=== PATIENT | female | born 1930 | race Caucasian/White ===

== ENCOUNTER 2016-05-02 16:31 | Emergency (ER) | payer OTHER ==
[~2016-05-02] VITALS: Ht 167.6 cm; Wt 88.0 kg
[~2016-05-02 16:31] MED LIST: ASPEC81 PO; AVASTIN OPR; CLC100 PO; CYCL0.05 OPB; GLIM1TAB2 PO; LPT/40 PO; METO25TA3 PO; MRLP17 PO; MULT-190 PO; NTRGSL/4 UT; NXM/40 PO; VSC/10 PO
[2016-05-02 16:36] VITALS: TEMP 36.6; Ht 167.6 cm; Wt 88.0 kg
[2016-05-02] MEDS ORDERED: ATOR-24 PO (17:04)
[2016-05-02] MEDS ORDERED: SOLI10TA2 PO (17:04)
[2016-05-02] MEDS ORDERED: ESOM1CAP34 PO (17:04)
[2016-05-02] MEDS ORDERED: CYCL0.052 OP (17:04)
[2016-05-02] MEDS ORDERED: ASPI81TA21 PO (17:04)
[2016-05-02] MEDS ORDERED: CLC100X PO (17:04)
[2016-05-02] MEDS ORDERED: MRLP17X PO (17:04)
[2016-05-02] MEDS ORDERED: LSX20 PO (17:05)
[2016-05-02 17:41] LABS: BASO % 0.7 %; BASO ABS # 0.06 K/uL (0-0.2); COMPLETE YES; EOS % 1.5 %; HEMATOCRIT 41.3 % (37-47); IG% 0.2 %; LYMPH % 19.6 %; LYMPH ABS # 1.69 K/uL (1.2-3.4); MEAN CELL VOLUME 84.6 fL (80-100); MEAN CORPUSCULAR HEMOGLOBIN 29.5 pg (25-34); MEAN CORPUSCULAR HGB CONC 34.9 g/dl (32-36); MEAN PLATELET VOLUME 9.9 fL (7.4-10.4); MONO % 9.6 %; NEUT % 68.4 %; PLATELET COUNT 261 K/uL (130-400); RED BLOOD COUNT 4.88 M/uL (4.2-5.4); WHITE BLOOD COUNT 8.61 K/uL (4.8-10.8)
[2016-05-02 17:50] LABS: BLOOD UREA NITROGEN 12 mg/dl (7-18); CREATININE 0.81 mg/dl (0.60-1.20); GLUCOSE 117 mg/dl (70-99)
[2016-05-02 17:51] LABS: ALT/SGPT 14 U/L (12-78); BUN/CREATININE RATIO 15.2 (10-20); CALCIUM 8.7 mg/dl (8.5-10.1); CARBON DIOXIDE 22 mmol/L (21-32); CHLORIDE 103 mmol/L (98-107); POTASSIUM 3.7 mmol/L (3.5-5.1); SODIUM 137 mmol/L (136-145)
[2016-05-02 17:55] LABS: ALKALINE PHOSPHATASE 112 U/L (45-117); AST/SGOT 9 U/L (15-37)
--- NOTE | 2016-05-02 18:22 | DIAGNOSTIC IMAGING REPORT ---
CT HEAD WITHOUT CONTRAST (CT) CLINICAL HISTORY: Head pain status post trauma COMPARISON STUDY: 02/21/2011 TECHNIQUE: Axial CT of the brain is performed from the vertex to the skull base. IV contrast was not administered for this examination. CT DOSE: 1165.97 mGy.cm FINDINGS: No intra or extra-axial mass lesions are visualized. There is no CT evidence of acute cortical infarction. There is no evidence of midline shift. There is no acute hemorrhage. No calvarial fractures are visualized. There are patchy white matter hypodensities likely on a small vessel basis. There are moderate atrophic changes. There is no evidence of pathologic ventricular dilatation. There is no evidence of acute sinusitis. There is a left parietal scalp hematoma. IMPRESSION: Left parietal scalp hematoma. No acute intracranial findings. Electronically signed by: Jeovanny Quinn M.D. 05/02/2016 6:21 PM Dictated Date/Time: 05/02/2016 6:19 PM
--- NOTE | 2016-05-02 18:29 | DIAGNOSTIC IMAGING REPORT ---
CT OF THE CERVICAL SPINE CLINICAL HISTORY: Neck pain status post trauma COMPARISON STUDY: 02/21/2011 CT DOSE: TECHNIQUE: CT scan of the cervical spine was performed from the skull base to the thoracic inlet. Images are reviewed in the axial, sagittal, and coronal planes. IV contrast was not administered for this examination. FINDINGS: The visualized portions of the lung apices reveal no pneumothorax. There is a stable partially solid and groundglass 24 mm left apical nodule, suspicious for a low-grade neoplasm. This remains unchanged the prior January 2011 study. The prevertebral soft tissues are normal. No fractures or traumatic subluxations are visualized. There are multilevel degenerative changes present. There is a levoscoliosis. There is a stable 1 cm C3 lytic lesion. There is 2.8 mm of anterior subluxation of C4 on C5. This is felt to be arthritic. There is 1.8 mm of anterior subluxation of C7 on T1. This is felt to be arthritic. IMPRESSION: 1. No evidence of acute fracture or traumatic subluxation 2. Stable partially solid and groundglass 24 mm left apical pulmonary nodule, suspicious for a low-grade neoplasm. This remains unchanged from January 2011 Electronically signed by: Jeovanny Quinn M.D. 05/02/2016 6:27 PM Dictated Date/Time: 05/02/2016 6:21 PM
--- NOTE | 2016-05-02 19:30 | DIAGNOSTIC IMAGING REPORT ---
CHEST 1 VW FRONT-NOT PORTABLE CLINICAL HISTORY: FALL CHEST AND BACK PAIN COMPARISON STUDY: No previous studies for comparison. FINDINGS: The cardiac and mediastinal contours are normal. There is no evidence of focal pulmonary consolidation. There is no evidence of failure. No pleural effusions are visualized.[ There is minor left basilar atelectasis/scarring. There is a left subclavian dual-chamber central venous pacemaker present. No pneumothorax is visualized. IMPRESSION: No active disease in the chest. Electronically signed by: Jeovanny Quinn M.D. 05/02/2016 7:28 PM Dictated Date/Time: 05/02/2016 7:28 PM
--- NOTE | 2016-05-02 19:31 | DIAGNOSTIC IMAGING REPORT ---
LUMBAR SPINE 2 OR 3 VIEWS CLINICAL HISTORY: Back pain status post trauma COMPARISON STUDY: No previous studies for comparison. FINDINGS: There are postsurgical changes of L3-L5 laminectomies. There are postsurgical changes of discectomies and interbody fusions at the L3-4 L4-5 and L5-S1 levels. There are pedicle screws present at the L2, L3, and L4 levels. There is a posterior lateral fusion mass. Degenerative changes are present at the L2-3 level. There is minor retrolisthesis of L2 on L3. No acute fractures are visualized. IMPRESSION: Postsurgical change. No acute fractures identified. Electronically signed by: Jeovanny Quinn M.D. 05/02/2016 7:30 PM Dictated Date/Time: 05/02/2016 7:29 PM
--- NOTE | 2016-05-02 19:32 | DIAGNOSTIC IMAGING REPORT ---
THORACIC SPINE 2-VIEWS CLINICAL HISTORY: Thoracic spine pain status post trauma COMPARISON STUDY: No previous studies for comparison. FINDINGS: There is a left subclavian dual-chamber central venous pacemaker present. There are multilevel degenerative changes present within the thoracic spine. There are no acute fractures. No subluxations are visualized. IMPRESSION: Degenerative change. No acute fractures or subluxations are visualized on conventional radiographic imaging Electronically signed by: Jeovanny Quinn M.D. 05/02/2016 7:30 PM Dictated Date/Time: 05/02/2016 7:30 PM
--- NOTE | 2016-05-02 20:15 | DIAGNOSTIC IMAGING REPORT ---
CT PELVIS NO IV/ORAL CONT (CT) CT DOSE: 1270.45 mGy.cm CLINICAL HISTORY: Severe pelvic pain status post trauma TECHNIQUE: Helical images were acquired in the transverse plane. Coronal reformatted images were acquired COMPARISON STUDY: Conventional radiographic evaluation the lumbar spine dated April 2016 FINDINGS: There are postsurgical changes present within the lower lumbar spine. There is no evidence of SI joint diastases. There is no evidence of symphysis pubis diastases. The uterus appears surgically absent. There is no evidence of ascites. No retroperitoneal hemorrhage is visualized. 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 No fractures are visualized. There is slight posterior displacement of the coccyx. This is likely chronic. IMPRESSION: 1. Postsurgical changes within the lower lumbar spine 2. No acute fractures 3. Slight posterior displacement of the coccyx, likely chronic Electronically signed by: Jeovanny Quinn M.D. 05/02/2016 8:14 PM Dictated Date/Time: 05/02/2016 8:10 PM
--- NOTE | 2016-05-02 21:12 | EMERGENCY ROOM VISIT NOTE ---
History Report prepared by Татьянаibrogerio: Bel Adan Under the Supervision of: Dr. Mackenzie Warren M.D. First contact with patient: 16:38 Chief Complaint: FALL Stated Complaint: FALL, HEAD INJURY History of Present Illness The patient is a 85 year old female who presents to the Emergency Room with complaints of a head injury status post a fall this afternoon. The patient remembers making a salad and was putting stuff away in the refrigerator when she fell. Her life alert detected a fall and about 30 minutes later, her daughter found the patient sitting on the floor in her kitchen. The patient is unsure how exactly she fell and doesn't remember what happened after she fell either. She typically uses a cane or a walker. En route to the ED, the patient became nauseated and vomited. Currently, she has a headache and back pain. The patient has a history of chronic back pain. Per patient's daughter, the patient saw her PCP yesterday for a routine follow up appointment and had lab work which was normal. She was put on 20 mg Lasix for the first time due to increased lower extremity swelling. She did not have any other medication changes. Her first dose of Lasix was this morning. Source of History: patient, family Onset: today Position: head Timing: constant Associated Symptoms: + back pain, + nausea, + vomiting Review of Systems See HPI for pertinent positives & negatives. A total of 10 systems reviewed and were otherwise negative. Past Medical & Surgical Medical Problems: (1) Chronic back pain (2) Diabetes Family History Noncontributory secondary to age. Social History Smoking Status: Never Smoker Marital Status: Housing Status: lives alone Occupation Status: retired Current/Historical Medications Scheduled Aspirin Enteric Coated (Ecotrin Or Generic), 81 MG PO QPM Atorvastatin (Lipitor), 40 MG PO QPM Cyclosporine (Ophth) (Restasis), 1 DROP OP HS Esomeprazole Magnesium (Esomeprazole Magnesium), 40 MG PO QPM Furosemide (Furosemide), 20 MG PO Q2D Glimepiride (Glimepiride), 1 MG PO QAM Metoprolol Succinate (Toprol Xl), 12.5 MG PO QPM Ocuvite Preservision (Ocuvite Preservision), 2 TAB PO QPM Solifenacin (Vesicare), 10 MG PO QPM [Avastin], 1 DOSE OPR [id number] Scheduled PRN Docusate Sodium (Docusate Sodium), 200 MG PO DAILY PRN for Constipation Nitroglycerin (Nitrostat), 0.4 MG UT UD PRN for Chest Pain Polyethylene (Miralax), 17 GM PO DAILY PRN for Constipation Allergies Coded Allergies: Tobramycin (Verified Allergy, Intermediate, RASH W/OPTHAM, 05/02/16) Morphine (Verified Adverse Reaction, Intermediate, increase bp/increase heart rate, 05/02/16) Oxycodone (Verified Adverse Reaction, Intermediate, SEVERE NAUSEA AND VOMITING, 05/02/16) Physical Exam Vital Signs Date Time Temp Pulse Resp B/P Pulse Ox O2 Delivery O2 Flow Rate FiO2 05/02/16 21:13 66 18 159/67 94 Room Air 05/02/16 19:41 97 Room Air 05/02/16 19:32 61 16 166/82 94 Room Air 05/02/16 17:40 67 17 152/65 95 Room Air 05/02/16 16:40 64 05/02/16 16:36 36.6 67 20 165/109 93 Room Air Physical Exam CONSTITUTIONAL: Mild anxious distress. HEENT: No icterus, moist mucous membranes, eyes closed secondary to light sensitivity consistent with baseline NECK: No meningismus, trachea is midline. No midline c-spine tenderness CARDIOVASCULAR: Regular rate, normal perfusion RESPIRATORY: Unlabored breathing. Clear to auscultation. GASTROINTESTINAL: Non-tender GENITOURINARY: No flank tenderness MUSCULOSKELETAL: Full range of motion NEUROLOGIC: No acute gross focal deficits. PSYCHIATRIC: Normal affect SKIN: Normal for ethnicity. Medical Decision & Procedures ER Provider Diagnostic Interpretation: Radiology results as stated below per my review and radiologist interpretation. CT HEAD WITHOUT CONTRAST (CT) CLINICAL HISTORY: Head pain status post trauma COMPARISON STUDY: 02/21/2011 TECHNIQUE: Axial CT of the brain is performed from the vertex to the skull base. IV contrast was not administered for this examination. CT DOSE: 1165.97 mGy.cm FINDINGS: No intra or extra-axial mass lesions are visualized. There is no CT evidence of acute cortical infarction. There is no evidence of midline shift. There is no acute hemorrhage. No calvarial fractures are visualized. There are patchy white matter hypodensities likely on a small vessel basis. There are moderate atrophic changes. There is no evidence of pathologic ventricular dilatation. There is no evidence of acute sinusitis. There is a left parietal scalp hematoma. IMPRESSION: Left parietal scalp hematoma. No acute intracranial findings. Electronically signed by: Jeovanny Quinn M.D. 05/02/2016 6:21 PM Dictated Date/Time: 05/02/2016 6:[address] OF THE CERVICAL SPINE CLINICAL HISTORY: Neck pain status post trauma COMPARISON STUDY: 02/21/2011 CT DOSE: TECHNIQUE: CT scan of the cervical spine was performed from the skull base to the thoracic inlet. Images are reviewed in the axial, sagittal, and coronal planes. IV contrast was not administered for this examination. FINDINGS: The visualized portions of the lung apices reveal no pneumothorax. There is a stable partially solid and groundglass 24 mm left apical nodule, suspicious for a low-grade neoplasm. This remains unchanged the prior January 2011 study. The prevertebral soft tissues are normal. No fractures or traumatic subluxations are visualized. There are multilevel degenerative changes present. There is a levoscoliosis. There is a stable 1 cm C3 lytic lesion. There is 2.8 mm of anterior subluxation of C4 on C5. This is felt to be arthritic. There is 1.8 mm of anterior subluxation of C7 on T1. This is felt to be arthritic. IMPRESSION: 1. No evidence of acute fracture or traumatic subluxation 2. Stable partially solid and groundglass 24 mm left apical pulmonary nodule, suspicious for a low-grade neoplasm. This remains unchanged from January 2011 Electronically signed by: Jeovanny Quinn M.D. 05/02/2016 6:27 PM Dictated Date/Time: 05/02/2016 6:21 PM CHEST 1 VW FRONT-NOT PORTABLE CLINICAL HISTORY: FALL CHEST AND BACK PAIN COMPARISON STUDY: No previous studies for comparison. FINDINGS: The cardiac and mediastinal contours are normal. There is no evidence of focal pulmonary consolidation. There is no evidence of failure. No pleural effusions are visualized.[ There is minor left basilar atelectasis/scarring. There is a left subclavian dual-chamber central venous pacemaker present. No pneumothorax is visualized. IMPRESSION: No active disease in the chest. Electronically signed by: Jeovanny Quinn M.D. 05/02/2016 7:28 PM Dictated Date/Time: 05/02/2016 7:28 PM LUMBAR SPINE 2 OR 3 VIEWS CLINICAL HISTORY: Back pain status post trauma COMPARISON STUDY: No previous studies for comparison. FINDINGS: There are postsurgical changes of L3-L5 laminectomies. There are postsurgical changes of discectomies and interbody fusions at the L3-4 L4-5 and L5-S1 levels. There are pedicle screws present at the L2, L3, and L4 levels. There is a posterior lateral fusion mass. Degenerative changes are present at the L2-3 level. There is minor retrolisthesis of L2 on L3. No acute fractures are visualized. IMPRESSION: Postsurgical change. No acute fractures identified. Electronically signed by: Jeovanny Quinn M.D. 05/02/2016 7:30 PM Dictated Date/Time: 05/02/2016 7:29 PM THORACIC SPINE 2-VIEWS CLINICAL HISTORY: Thoracic spine pain status post trauma COMPARISON STUDY: No previous studies for comparison. FINDINGS: There is a left subclavian dual-chamber central venous pacemaker present. There are multilevel degenerative changes present within the thoracic spine. There are no acute fractures. No subluxations are visualized. IMPRESSION: Degenerative change. No acute fractures or subluxations are visualized on conventional radiographic imaging Electronically signed by: Jeovanny Quinn M.D. 05/02/2016 7:30 PM Dictated Date/Time: 05/02/2016 7:[address] PELVIS NO IV/ORAL CONT (CT) CT DOSE: 1270.45 mGy.cm CLINICAL HISTORY: Severe pelvic pain status post trauma TECHNIQUE: Helical images were acquired in the transverse plane. Coronal reformatted images were acquired COMPARISON STUDY: Conventional radiographic evaluation the lumbar spine dated April 2016 FINDINGS: There are postsurgical changes present within the lower lumbar spine. There is no evidence of SI joint diastases. There is no evidence of symphysis pubis diastases. The uterus appears surgically absent. There is no evidence of ascites. No retroperitoneal hemorrhage is visualized. 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 No fractures are visualized. There is slight posterior displacement of the coccyx. This is likely chronic. IMPRESSION: 1. Postsurgical changes within the lower lumbar spine 2. No acute fractures 3. Slight posterior displacement of the coccyx, likely chronic Electronically signed by: Jeovanny Quinn M.D. 05/02/2016 8:14 PM Dictated Date/Time: 05/02/2016 8:10 PM Laboratory Results 05/02/16 17:25 Red Blood Count 4.88, Mean Corpuscular Volume 84.6, Mean Corpuscular Hemoglobin 29.5, Mean Corpuscular Hemoglobin Concent 34.9, Mean Platelet Volume 9.9, Neutrophils (%) (Auto) 68.4, Lymphocytes (%) (Auto) 19.6, Monocytes (%) (Auto) 9.6, Eosinophils (%) (Auto) 1.5, Basophils (%) (Auto) 0.7, Neutrophils # (Auto) 5.88, Lymphocytes # (Auto) 1.69, Monocytes # (Auto) 0.83, Eosinophils # (Auto) 0.13, Basophils # (Auto) 0.06 05/02/16 17:25 Test 05/02/16 17:25 White Blood Count 8.61 K/uL (4.8-10.8) Red Blood Count 4.88 M/uL (4.2-5.4) Hemoglobin 14.4 g/dL (12.0-16.0) Hematocrit 41.3 % (37-47) Mean Corpuscular Volume 84.6 fL (80-100) Mean Corpuscular Hemoglobin 29.5 pg (25-34) Mean Corpuscular Hemoglobin Concent 34.9 g/dl (32-36) Platelet Count 261 K/uL (130-400) Mean Platelet Volume 9.9 fL (7.4-10.4) Neutrophils (%) (Auto) 68.4 % Lymphocytes (%) (Auto) 19.6 % Monocytes (%) (Auto) 9.6 % Eosinophils (%) (Auto) 1.5 % Basophils (%) (Auto) 0.7 % Neutrophils # (Auto) 5.88 K/uL (1.4-6.5) Lymphocytes # (Auto) 1.69 K/uL (1.2-3.4) Monocytes # (Auto) 0.83 K/uL (0.11-0.59) Eosinophils # (Auto) 0.13 K/uL (0-0.5) Basophils # (Auto) 0.06 K/uL (0-0.2) RDW Standard Deviation 41.3 fL (36.4-46.3) RDW Coefficient of Variation 13.4 % (11.5-14.5) Immature Granulocyte % (Auto) 0.2 % Immature Granulocyte # (Auto) 0.02 K/uL (0.00-0.02) Anion Gap 12.0 mmol/L (3-11) Est Creatinine Clear Calc Drug Dose 56.7 ml/min Estimated GFR () 76.8 Estimated GFR (Non- 66.2 BUN/Creatinine Ratio 15.2 (10-20) Calcium Level 8.7 mg/dl (8.5-10.1) Total Bilirubin 0.7 mg/dl (0.2-1) Direct Bilirubin 0.2 mg/dl (0-0.2) Aspartate Amino Transf (AST/SGOT) 9 U/L (15-37) Alanine Aminotransferase (ALT/SGPT) 14 U/L (12-78) Alkaline Phosphatase 112 U/L (45-117) Troponin I < 0.015 ng/ml (0-0.045) Total Protein 6.8 gm/dl (6.4-8.2) Albumin 3.7 gm/dl (3.4-5.0) Lipase 50 U/L (73-393) Ethyl Alcohol mg/dL < 3.0 mg/dl (0-3) Labs reviewed by ED physician. Medications Administered Medications (Trade) Dose Ordered Sig/Sarah Route Start Time Stop Time Status Last Admin Dose Admin Acetaminophen (Tylenol Tab) 1,000 mg NOW STAT PO 05/02/16 21:16 05/02/16 21:18 DC 05/02/16 21:23 1,000 MG Ketorolac Tromethamine (Toradol Inj) 15 mg NOW STAT IV 05/02/16 21:16 05/02/16 21:18 DC 05/02/16 21:24 15 MG Ondansetron HCl (Zofran Inj) 4 mg NOW STAT IV 05/02/16 21:16 05/02/16 21:18 DC 05/02/16 21:24 4 MG ECG Indication: other (fall) Rate (beats per minute): 60 Rhythm: other (atrial paced) Findings: nonspecific-ST abn, other (normal axis) ED Course 1640: Past medical records reviewed. The patient was evaluated in room C5. A complete history and physical examination was performed. 1944: The patient had an ambulation test with nursing staff. She could walk but was having pain. 2114: Upon reexamination the patient is resting comfortably. I discussed results and treatment plan with the patient and her family. They verbalized agreement and understanding. The patient is ready for discharge. Medical Decision Differential diagnosis includes traumatic injuries, UTI, heart disease. 85-year-old presents to the emergency room with family after accidental fall while making in her. Daughter subsequently called 911. Screening evaluations in the emergency room were normal. It is noted patient normally uses a walker and she was able to ambulate at baseline but noted some hip tenderness on the right. Therefore, CT the pelvis is obtained was subsequently negative for fracture. Patient and family in agreement with plan for discharge as she is essentially at baseline at this point. Impression Primary Impression: Fall Additional Impression: Contusion of multiple sites Scribe Attestation The scribe's documentation has been prepared under my direction and personally reviewed by me in its entirety. I confirm that the note above accurately reflects all work, treatment, procedures, and medical decision making performed by me. Departure Information Dispostion Home / Self-Care Referrals Esteban Deras D.O. (PCP) Patient Instructions My [facility] Problem Qualifiers
[2016-05-02 21:13] VITALS: BP 159/67; PULSE 66; O2SAT 94
[2016-05-02] MEDS ORDERED: KETOROLAC TROMETHAMINE 30 MG/ML VIAL IV STA (21:16)
[2016-05-02] MEDS ORDERED: ONDANSETRON INJ 2 MG/ML 2 ML VIAL IV STA (21:16)
[2016-05-02] MEDS ORDERED: ACETAMINOPHEN 500 MG TAB PO STA (21:16)
[2016-05-02] MEDS ORDERED: ACETAMINOPHEN 500 MG TAB PO ONE (21:17)
== END 2016-05-02 21:36 | disposition home or self-care (01) ==
LOC: EDBD 16:31 → C.EDC 16:32
DX: T14.8 Other injury of unspecified body region (principal); W19.XXXA Unspecified fall, initial encounter; Y92.010 Kitchen of single-family (private) house as the place of occurrence of the external cause; M54.9 Dorsalgia, unspecified; G89.29 Other chronic pain; E11.9 Type 2 diabetes mellitus without complications; Z79.82 Long term (current) use of aspirin; Z79.899 Other long term (current) drug therapy

== ENCOUNTER 2016-05-23 16:10 | Observation (INO) | payer OTHER ==
[~2016-05-23] VITALS: Ht 154.9 cm; Wt 88.5 kg
[~2016-05-23 16:10] MED LIST changes: -ASPEC81 PO; +ASPI81TA21 PO; +ATOR-24 PO; -CLC100 PO; +CLC100X PO; -CYCL0.05 OPB; +CYCL0.052 OP; +ESOM1CAP34 PO; -LPT/40 PO; +LSX20 PO; -MRLP17 PO; +MRLP17X PO; -NXM/40 PO; +SOLI10TA2 PO; -VSC/10 PO
[2016-05-23 16:26] VITALS: Ht 154.9 cm; Wt 88.5 kg
[2016-05-23 17:09] LABS: BASO % 0.3 %; BASO ABS # 0.03 K/uL (0-0.2); COMPLETE YES; EOS % 2.2 %; HEMATOCRIT 40.5 % (37-47); IG% 0.2 %; LYMPH % 34.9 %; LYMPH ABS # 3.33 K/uL (1.2-3.4); MEAN CELL VOLUME 84.9 fL (80-100); MEAN CORPUSCULAR HEMOGLOBIN 29.1 pg (25-34); MEAN CORPUSCULAR HGB CONC 34.3 g/dl (32-36); MONO % 8.7 %; NEUT % 53.7 %; PLATELET COUNT 283 K/uL (130-400); RED BLOOD COUNT 4.77 M/uL (4.2-5.4); WHITE BLOOD COUNT 9.54 K/uL (4.8-10.8)
[2016-05-23 17:28] LABS: ALT/SGPT 19 U/L (12-78); AST/SGOT 14 U/L (15-37); BLOOD UREA NITROGEN 10 mg/dl (7-18); CALCIUM 8.5 mg/dl (8.5-10.1); CARBON DIOXIDE 24 mmol/L (21-32); CHLORIDE 103 mmol/L (98-107); GLUCOSE 190 mg/dl (70-99); SODIUM 137 mmol/L (136-145)
[2016-05-23 17:34] LABS: ALB/GLOB RATIO 1.1 (0.9-2); ALKALINE PHOSPHATASE 113 U/L (45-117)
--- NOTE | 2016-05-23 18:20 | DIAGNOSTIC IMAGING REPORT ---
LEFT KNEE 1 OR 2 VIEWS ROUTINE CLINICAL HISTORY: Left knee pain following fall. COMPARISON: Left knee radiographs August 28, 2007. FINDINGS: Alignment of the total left knee arthroplasty is anatomic. There is no periprosthetic fracture or lucency. No definite joint effusion. Calcifications adjacent to the knee joint are chronic. IMPRESSION: Status post total left knee arthroplasty. Hardware intact with no periprosthetic fracture. Electronically signed by: German Tran M.D. 05/23/2016 6:19 PM Dictated Date/Time: 05/23/2016 6:18 PM
--- NOTE | 2016-05-23 18:21 | DIAGNOSTIC IMAGING REPORT ---
CHEST ONE VIEW PORTABLE CLINICAL HISTORY: Syncope. Fall. COMPARISON STUDY: Chest radiograph May 02, 2016. FINDINGS: A dual lead left subclavian pacemaker is unchanged in position. Moderate cardiomegaly is unchanged and there is no evidence of pulmonary edema. Mild left basilar opacity suggestive atelectasis. There are healed left rib fractures. There is no pneumothorax or pleural effusion. IMPRESSION: No acute cardiopulmonary findings. Electronically signed by: German Tran M.D. 05/23/2016 6:20 PM Dictated Date/Time: 05/23/2016 6:19 PM
--- NOTE | 2016-05-23 18:27 | DIAGNOSTIC IMAGING REPORT ---
CT OF THE HEAD WITHOUT CONTRAST CLINICAL HISTORY: Fall. Syncope. COMPARISON STUDY: Head CT May 02, 2016. TECHNIQUE: Helical axial images of the head were obtained without IV contrast. Automated exposure control was utilized for the study. FINDINGS: No acute intracranial hemorrhage, midline shift or mass effect is present. Ventricular system is normal. Basilar cisterns are patent. No extra axial collections are present. Prominence of the extra-axial spaces is due to atrophy. This is unchanged. Mild white matter hypodensity suggests small vessel disease. There are no findings to suggest acute dural sinus thrombosis or acute territorial infarct. There is no calvarial fracture. IMPRESSION: 1. No acute intracranial findings. 2. No calvarial fracture. Electronically signed by: German Tran M.D. 05/23/2016 6:25 PM Dictated Date/Time: 05/23/2016 6:22 PM
--- NOTE | 2016-05-23 18:30 | DIAGNOSTIC IMAGING REPORT ---
CT OF THE CERVICAL SPINE WITHOUT CONTRAST CLINICAL HISTORY: Fall. COMPARISON STUDY: Cervical spine CT May 12, 2016. TECHNIQUE: Helical axial images of the cervical spine were obtained without IV contrast. Sagittal and coronal reconstructions were viewed. FINDINGS: No acute fracture is identified. Craniocervical junction is intact. A lucent lesion within the left aspect of the C3 vertebral bodies unchanged since prior exams. This is benign. There is moderate multilevel degenerative disc disease and severe multilevel facet arthrosis. There is no prevertebral edema. No pneumothorax is shown within visualized portions of the lung apices. IMPRESSION: No acute cervical spine fracture or subluxation. Electronically signed by: German Tran M.D. 05/23/2016 6:28 PM Dictated Date/Time: 05/23/2016 6:26 PM
[2016-05-23 18:59] LABS: URINE APPEARANCE CLEAR (CLEAR); URINE BILIRUBIN NEG (NEG); URINE COLOR YELLOW; URINE NITRITE NEG (NEG); URINE PH 5.5 (4.5-7.5); URINE SPECIFIC GRAVITY 1.002 (1.000-1.030); UROBILINOGEN NEG (NEG); ZZUR CULT IF INDIC CLEAN CATCH NO
[2016-05-23 19:00] LABS: MANUAL MICROSCOPIC REQUIRED? NO; REVIEW REQ? NO
[2016-05-23] MEDS ORDERED: IV FLUIDS COMPLETED PRN (20:45)
[2016-05-23 21:15] VITALS: O2SAT 95
[2016-05-23] MEDS ORDERED: ONDANSETRON INJ 2 MG/ML 2 ML VIAL IV PRN (21:15)
[2016-05-23] MEDS ORDERED: HYDROCODONE/ACETAMOPHEN 5/325MG TAB PO PRN (21:15)
[2016-05-23] MEDS ORDERED: ACETAMINOPHEN 325 MG TAB PO PRN (21:15)
[2016-05-23] MEDS ORDERED: NITROGLYCERIN 0.4 MG SL PER TAB CHARGE SL PRN (21:15)
[2016-05-23] MEDS ORDERED: GLUCOSE 40% GEL 15 GM TUBE PO PRN (21:15)
[2016-05-23] MEDS ORDERED: DEXTROSE 50% 50 ML SYR IV PRN (21:15)
[2016-05-23] MEDS ORDERED: SODIUM CHLORIDE 0.9% 1000ML 1,000 ML IV ONE (21:15)
[2016-05-23] MEDS ORDERED: HYDROmorphone INJ 0.5 MG/0.5 ML SYR IV PRN (21:15)
[2016-05-23] MEDS ORDERED: DOCUSATE SODIUM 100 MG CAP PO PRN (21:15)
[2016-05-23] MEDS ORDERED: GLUCAGON FOR INJ 1 MG VIAL SQ PRN (21:15)
[2016-05-23] MEDS ORDERED: POLYETHYLENE (MIRALAX) 17 GM PACK PO PRN (21:15)
[2016-05-23] MEDS ORDERED: GLUCOSE 10 TABS/TUBE PO PRN (21:15)
--- NOTE | 2016-05-23 21:31 | EMERGENCY ROOM VISIT NOTE ---
History Report prepared by Lauren: Ale Ugalde Under the Supervision of: Dr. Raul Lee M.D. First contact with patient: 17:26 Chief Complaint: FALL Stated Complaint: SYNCOPE ON 05/21 History of Present Illness The patient is a 86 year old female who presents to the Emergency Room with complaints of a sudden fall that occurred 2 days ago. The patient states that she feels well. She does not experience any pain or lightheadedness prior to falling. The patient's daughter states that the patient was in the shower washing her hair when her legs got weak and she fell backward. The patient hit the back of her head on the tub. The patient states that it took her two hours to get out of the shower because she was so tired and weak. She is experiencing neck pain and left leg pain from falling. Pt denies LOC, headache, fevers, chills, diaphoresis, visual changes, chest pain, breathing difficulties, nausea , vomiting, abdominal pain, back pain, melena, hematochezia, urinary symptoms, numbness, lymphadenopathy, rash, or other complaints. Per the patient's daughter , the patient experienced a similar fall on May 01. A full work-up was done after that fall and it was unremarkable. The patient followed up with her PCP after that fall and they scheduled an echocardiogram. The patient had her echocardiogram done two days ago, but the patient's daughter has not heard anything about the results. The patient's daughter also states that the patient reported that she experienced similar symptoms in the past when she had a MN. The patient's daughter adds that the patient has a pacemaker in place and it was interrogated after the previous fall, but nothing was found. The patient's daughter called the patient's PCP office yesterday night and they called back today with a recommendation to come into the ED. The patient's daughter also reports that the patient's blood sugars have been good recently. Source of History: patient, family (daughter) Onset: 2 days ago Quality: other (fall) Timing: other (sudden) Associated Symptoms: + neck pain, + weakness (bilateral leg) Note: left leg pain Review of Systems See HPI for pertinent positives and negatives. A total of ten systems were reviewed and were otherwise negative. Past Medical & Surgical Medical Problems: (1) Chronic back pain (2) Diabetes (3) Syncope Family History No pertinent family history Social History Smoking Status: Former Smoker Marital Status: Housing Status: lives alone Occupation Status: retired Current/Historical Medications Scheduled Aspirin Enteric Coated (Ecotrin Or Generic), 81 MG PO QPM Atorvastatin (Lipitor), 40 MG PO QPM Cyclosporine (Ophth) (Restasis), 1 DROP OP HS Esomeprazole Magnesium (Esomeprazole Magnesium), 40 MG PO QPM Glimepiride (Glimepiride), 1 MG PO QPM Metoprolol Succinate (Toprol Xl), 12.5 MG PO QPM Ocuvite Preservision (Ocuvite Preservision), 2 TAB PO QPM Solifenacin (Vesicare), 10 MG PO QPM [Avastin], 1 DOSE OPR [id number] Scheduled PRN Docusate Sodium (Docusate Sodium), 200 MG PO DAILY PRN for Constipation Nitroglycerin (Nitrostat), 0.4 MG UT UD PRN for Chest Pain Polyethylene (Miralax), 17 GM PO DAILY PRN for Constipation Allergies Coded Allergies: Tobramycin (Verified Allergy, Intermediate, RASH W/OPTHAM, 05/23/16) Morphine (Verified Adverse Reaction, Intermediate, increase bp/increase heart rate, 05/23/16) Oxycodone (Verified Adverse Reaction, Intermediate, SEVERE NAUSEA AND VOMITING, 05/23/16) Physical Exam Vital Signs Date Time Temp Pulse Resp B/P Pulse Ox O2 Delivery O2 Flow Rate FiO2 05/23/16 20:46 61 18 157/73 96 Room Air 05/23/16 18:46 72 20 156/84 96 Room Air 05/23/16 16:55 76 20 128/73 93 Room Air 128/82 142/78 05/23/16 16:46 75 05/23/16 16:26 37.2 76 18 129/65 95 Room Air Physical Exam GENERAL: Awake, alert, tired-appearing, in no distress HENT: Normocephalic, atraumatic. Oropharynx unremarkable. EYES: Normal conjunctiva. Sclera non-icteric. NECK: Supple. Mild tenderness to palpation. No nuchal rigidity. FROM. No JVD. RESPIRATORY: Clear to auscultation. CARDIAC: Regular rate, normal rhythm. Extremities warm and well perfused. Pulses equal. ABDOMEN: Soft, non-distended. No tenderness to palpation. No rebound or guarding. No masses. RECTAL: Deferred. MUSCULOSKELETAL: Chest examination reveals no tenderness. The back is symmetrical on inspection without obvious abnormality. There is no CVA tenderness to palpation. No joint edema. LOWER EXTREMITIES: Calves are equal size bilaterally. Left knee tenderness with limited range of motion secondary to pain. No edema. No discoloration. NEURO: Normal sensorium. No sensory or motor deficits noted. SKIN: No rash or jaundice noted. Medical Decision & Procedures ER Provider Diagnostic Interpretation: X ray results as stated below per my interpretation and radiologist interpretation. Other radiology results as stated below per my review and radiologist interpretation CHEST ONE VIEW PORTABLE IMPRESSION: No acute cardiopulmonary findings. Electronically signed by: German Tran M.D. 05/23/2016 6:20 PM Dictated Date/Time: 05/23/2016 6:19 PM LEFT KNEE 1 OR 2 VIEWS ROUTINE IMPRESSION: Status post total left knee arthroplasty. Hardware intact with no periprosthetic fracture. Electronically signed by: German Tran M.D. 05/23/2016 6:19 PM Dictated Date/Time: 05/23/2016 6:[address] OF THE HEAD WITHOUT CONTRAST IMPRESSION: 1. No acute intracranial findings. 2. No calvarial fracture. Electronically signed by: German Tran M.D. 05/23/2016 6:25 PM Dictated Date/Time: 05/23/2016 6:[address] OF THE CERVICAL SPINE WITHOUT CONTRAST IMPRESSION: No acute cervical spine fracture or subluxation. Electronically signed by: German Tran M.D. 05/23/2016 6:28 PM Dictated Date/Time: 05/23/2016 6:26 PM Laboratory Results 05/23/16 16:50 Red Blood Count 4.77, Mean Corpuscular Volume 84.9, Mean Corpuscular Hemoglobin 29.1, Mean Corpuscular Hemoglobin Concent 34.3, Mean Platelet Volume 10.0, Neutrophils (%) (Auto) 53.7, Lymphocytes (%) (Auto) 34.9, Monocytes (%) (Auto) 8.7, Eosinophils (%) (Auto) 2.2, Basophils (%) (Auto) 0.3, Neutrophils # (Auto) 5.12, Lymphocytes # (Auto) 3.33, Monocytes # (Auto) 0.83, Eosinophils # (Auto) 0.21, Basophils # (Auto) 0.03 05/23/16 16:50 Test 05/23/16 13:35 05/23/16 16:00 05/23/16 16:50 Urine Color YELLOW Urine Appearance CLEAR (CLEAR) Urine pH 5.5 (4.5-7.5) Urine Specific [place] 1.002 (1.000-1.030) Urine Protein NEG (NEG) Urine Glucose (UA) NEG (NEG) Urine Ketones NEG (NEG) Urine Occult Blood NEG (NEG) Urine Nitrite NEG (NEG) Urine Bilirubin NEG (NEG) Urine Urobilinogen NEG (NEG) Urine Leukocyte Esterase SMALL (NEG) Urine WBC (Auto) 1-5 /hpf (0-5) Urine RBC (Auto) 0-4 /hpf (0-4) Urine Hyaline Casts (Auto) 0 /lpf (0-5) Urine Epithelial Cells (Auto) 5-10 /lpf (0-5) Urine Bacteria (Auto) NEG (NEG) Activated Partial Thromboplast Time 26.2 SECONDS (21.0-31.0) Partial Thromboplastin Ratio 1.0 White Blood Count 9.54 K/uL (4.8-10.8) Red Blood Count 4.77 M/uL (4.2-5.4) Hemoglobin 13.9 g/dL (12.0-16.0) Hematocrit 40.5 % (37-47) Mean Corpuscular Volume 84.9 fL (80-100) Mean Corpuscular Hemoglobin 29.1 pg (25-34) Mean Corpuscular Hemoglobin Concent 34.3 g/dl (32-36) Platelet Count 283 K/uL (130-400) Mean Platelet Volume 10.0 fL (7.4-10.4) Neutrophils (%) (Auto) 53.7 % Lymphocytes (%) (Auto) 34.9 % Monocytes (%) (Auto) 8.7 % Eosinophils (%) (Auto) 2.2 % Basophils (%) (Auto) 0.3 % Neutrophils # (Auto) 5.12 K/uL (1.4-6.5) Lymphocytes # (Auto) 3.33 K/uL (1.2-3.4) Monocytes # (Auto) 0.83 K/uL (0.11-0.59) Eosinophils # (Auto) 0.21 K/uL (0-0.5) Basophils # (Auto) 0.03 K/uL (0-0.2) RDW Standard Deviation 41.0 fL (36.4-46.3) RDW Coefficient of Variation 13.3 % (11.5-14.5) Immature Granulocyte % (Auto) 0.2 % Immature Granulocyte # (Auto) 0.02 K/uL (0.00-0.02) Anion Gap 10.0 mmol/L (3-11) Est Creatinine Clear Calc Drug Dose 41.2 ml/min Estimated GFR () 59.1 Estimated GFR (Non- 51.0 BUN/Creatinine Ratio 10.0 (10-20) Calcium Level 8.5 mg/dl (8.5-10.1) Magnesium Level 2.0 mg/dl (1.8-2.4) Total Bilirubin 0.3 mg/dl (0.2-1) Aspartate Amino Transf (AST/SGOT) 14 U/L (15-37) Alanine Aminotransferase (ALT/SGPT) 19 U/L (12-78) Alkaline Phosphatase 113 U/L (45-117) Troponin I < 0.015 ng/ml (0-0.045) Total Protein 6.8 gm/dl (6.4-8.2) Albumin 3.6 gm/dl (3.4-5.0) Globulin 3.2 gm/dl (2.5-4.0) Albumin/Globulin Ratio 1.1 (0.9-2) Thyroid Stimulating Hormone (TSH) 1.870 uIu/ml (0.300-4.500) Chemistry Specimen Hemolysis Laboratory results reviewed by me ECG Indication: weakness Rate (beats per minute): 71 Rhythm: normal sinus Findings: no acute ischemic change, no ectopy ED Course 1748: The patient was evaluated in room C8. A complete history and physical exam was performed. 1929: Upon reexamination, the patient was resting comfortably. I discussed the test results and treatment plan with the patient and her daughter. The patient will be evaluated for further management. 2009: Discussed the patient's case with Dr. Mimi Torres. The patient will be evaluated for further treatment and disposition. Medical Decision Triage Nursing notes reviewed. The patient's presentation and history were concerning for possible syncope. Etiologies such as cardiac sources, vasovagal event, infection, hypoglycemia, electrolyte abnormalities, intracerebral event, toxicologic, neurologic, as well as others were entertained. The patient was evaluated. Clinically she was doing well. She was sore. CT imaging of her neck and head were done and were negative. The patient has a bruise knee and x-ray imaging was performed. This was negative for fracture or dislocation. Her CBC, urinalysis, chemistry panel, cardiac markers were negative. The patient has had multiple episodes recently. Outpatient workup was unremarkable. The patient had similar issues when her pacemaker was first placed. Family was very concerned about her going home. Internal medicine was consulted for further management. The chart was completed utilizing [employer] Speech voice recognition software. Grammatical errors, random word insertions, pronoun errors, and incomplete sentences are an occasional consequence of this system due to software limitations, ambient noise, and hardware issues. Any formal questions or concerns about the content, text, or information contained within the body of this dictation should be directly addressed to the physician for clarification. Consults Time Called: 1942 Consulting Physician: Dr. Mimi Torres Returned Call: 2009 Discussed the patient's case with Dr. Mimi Torres. The patient will be evaluated for further treatment and disposition. Impression Primary Impression: Syncope Additional Impression: Closed head injury Scribe Attestation The scribe's documentation has been prepared under my direction and personally reviewed by me in its entirety. I confirm that the note above accurately reflects all work, treatment, procedures, and medical decision making performed by me. Departure Information Dispostion Being Evaluated By Hospitalist Referrals Esteban Deras D.OZhane (PCP) Patient Instructions My [facility] Problem Qualifiers Primary Impression: Syncope Syncope type: unspecified Qualified Codes: R55 - Syncope and collapse Additional Impression: Closed head injury Encounter type: initial encounter Qualified Codes: S09.90XA - Unspecified injury of head, initial encounter
[2016-05-23 21:54] VITALS: BP_SYST 149; BP_SYST 155; BP_SYST 163; BP_DIAS 77; BP_DIAS 78; BP_DIAS 83; PULSE 61; PULSE 63; PULSE 66; TEMP 36.2; O2SAT 94
[2016-05-23] MEDS: INSULIN ASPART 100 UNITS/ML 3 ML PEN SC SCH (21:55)
[2016-05-23] MEDS: ATORVASTATIN 40 MG TAB PO SCH (22:57)
[2016-05-23] MEDS: ASPIRIN 81 MG ECTAB PO SCH (22:57)
[2016-05-23] MEDS: PANTOprazole SOD 40 MG TAB PO SCH (22:58)
[2016-05-23] MEDS: METOPROLOL SUCC 25MG EXT REL TAB PO SCH (22:58)
[2016-05-23] MEDS: CEROVITE ADV FORMULA TAB PO SCH (22:58)
[2016-05-24] VITALS (10 sets, daily range): BP systolic 129–149; BP diastolic 68–81; PULSE 60–70; TEMP 36.3–36.7; O2SAT 93–98
--- NOTE | 2016-05-24 00:51 | HISTORY & PHYSICAL EXAMINATION ---
DATE OF ADMISSION: 05/23/2016 PRIMARY CARE DOCTOR: Dr. Deras Hx obtained from px and records. CHIEF COMPLAINT: Recurrent syncope. HISTORY OF PRESENT ILLNESS: Medical history is significant for hypertension, SA node dysfunction status post pacemaker placement. DM2 on oral meds, past tobacco abuse, arthritis, CHRIS on CPAP. Three weeks ago, the patient had an unwitnessed syncopal event while in her kitchen, Patient was found sitting on the floor at home after her personal Med Alert went off. No chest pain. Usual shortness of breath. Seen at the ER. CAT scan of the head showed left parietal scalp hematoma. Patient was subsequently sent home. Patient had a followup with PCP. Furosemide was stopped. Outpx 2D echo last month showed increased concentric LVH, EF of 55-59%, abnormal LV diastolic dysfunction, mild calcific aortic valve stenosis and mild aortic root enlargement. Home pacer checks from a few weeks back were OK as per daughter's communication w/ access services librarian's office. Patient also admits to episodic headaches from the vertex going down to the left side of the head, intermittent symptoms. No nausea, no vomiting for months now. some forgetfulness attributed to multiple concussions in the past as per px/ family Two days ago, px had recurrent syncopal event in the shower. No incontinence, no tongue biting. She may have been out for two hours. MEDICAL HISTORY: As above. SURGERIES: Hysterectomy, cataract surgery, anal lesion removals, back surgery, knee surgery and pacemaker placement (2009) HOME MEDICATIONS: Include; glimepiride, Toprol, Nitrostat, Ocuvite, MiraLax, VESIcare, aspirin, Lipitor, Restasis, docusate sodium and esomeprazole. ALLERGIES: TO MORPHINE, OXYCODONE AND TOBRAMYCIN. FAMILY HISTORY: Heart disease. PERSONAL AND SOCIAL HISTORY: Past tobacco use. No chronic intake of alcoholic beverages. A homemaker in her younger years. Lives alone. A . REVIEW OF SYSTEMS: As per HPI, all other ROS negative. PHYSICAL EXAMINATION: VITAL SIGNS: Blood pressure is 129/65, pulse rate 66, RR 18, temp 37.2, sats 98 on room air. GENERAL: Noted to be obese, slightly anxious, in no respiratory distress, looks younger for her stated age. HEENT: [place] palpebral conjunctivae. Dry mucosa. NECK: Short neck. LUNGS: Decreased breath sounds. HEART: Regular rate and rhythm. ABDOMEN: Soft. EXTREMITIES: No edema. no tenderness NEUROLOGIC: No gross focality. LABORATORIES: Hemoglobin was noted to be 12.9, hematocrit 40, white cells 9.5 and platelets 285. Sodium 137, potassium 4, chloride 103, CO2 24, BUN 10, creatinine 1.2, glucose 199, troponin was normal. Hemoglobin A1c in April [address] of the head; no acute pathology. EKG; rate of 70., NSR, no ischemia ASSESSMENT: 1. Recurrent syncope. 2 unwitnessed syncopal events in the last month. differentials include : orthostasis pacemaker dysfunction, hx SA node dysfunction sp PPM seizures 2. Hypertension, stable 3. DMi2 on oral meds, well-controlled as of recent outpx A1c 4. recurrent headaches rule out brain tumor PLAN: Observation PCU. Check orthostatic vitals. Pacemaker interrogation. EEG. CT of the head with contrast for recurrent headaches, syncope. (MRI precluded by pacemaker) Further mx pending mayorga results ISS BG goal 140-180. DVT prophylaxis, Lovenox subQ. DNR. Patient's daughter requesting for updates from providers. Miss Daisy Berman at [phone]. MTDD
[2016-05-24 06:22] LABS: PROTHROMBIN TIME (PATIENT) 11.1 SECONDS (9.0-12.0)
[2016-05-24 06:54] LABS: BASO % 0.5 %; BASO ABS # 0.04 K/uL (0-0.2); COMPLETE YES; EOS % 3.4 %; HEMATOCRIT 40.5 % (37-47); IG% 0.3 %; LYMPH % 34.7 %; LYMPH ABS # 2.58 K/uL (1.2-3.4); MEAN CELL VOLUME 85.3 fL (80-100); MEAN CORPUSCULAR HEMOGLOBIN 29.5 pg (25-34); MEAN CORPUSCULAR HGB CONC 34.6 g/dl (32-36); MONO % 11.3 %; NEUT % 49.8 %; PLATELET COUNT 258 K/uL (130-400); RED BLOOD COUNT 4.75 M/uL (4.2-5.4); WHITE BLOOD COUNT 7.44 K/uL (4.8-10.8)
[2016-05-24] MEDS: INSULIN ASPART 100 UNITS/ML 3 ML PEN SC SCH ×4 (08:33→21:00)
[2016-05-24] MEDS ORDERED: OPTIRAY 320 IV PRN (09:15)
--- NOTE | 2016-05-24 09:23 | DIAGNOSTIC IMAGING REPORT ---
CT brain combination HEAD COMBO CLINICAL HISTORY: Mental status change TECHNIQUE: Pre and post contrast transaxial acquisition COMPARISON STUDY: 05/23/2016 FINDINGS: Mild age-related atrophy. Ventricular system is midline. No evidence for acute intracranial hemorrhage. Postcontrast images are negative for an enhancing lesion. IMPRESSION: Age-related atrophy. No acute process. No change from the prior study. Electronically signed by: Jose George M.D. 05/24/2016 9:22 AM Dictated Date/Time: 05/24/2016 9:19 AM
[2016-05-24] MEDS: ENOXAPARIN 40 MG/0.4 ML SYR SC SCH (10:03)
--- NOTE | 2016-05-24 13:52 | ELECTROENCEPHALOGRAPH REPORT ---
CLINICAL DIAGNOSIS: Syncopal events, question seizures. EEG DIAGNOSIS: Essentially normal during wakefulness. DESCRIPTION OF TRACING: This EEG was done as an inpatient study as a bedside recording and is of excellent technical quality with the exception of some early muscle and movement artifacts. Photic stimulation was performed. A simultaneous video analysis of patient movement and behavior was obtained. Drowsiness and light sleep were not seen. During wakefulness, there is evidence for normal appearing background rhythm in the alpha range of up to 9-10 Hz of maximum frequency and 30 microvolts of maximum amplitude. This is maximum posterior head regions bilaterally symmetrical. Polymorphic mid frequency theta activity is seen over all head regions without clear focal or regional predominance. Anterior head region maximum bilaterally symmetrical low voltage fast activity in the beta range is present. Photic stimulation provoked some minimal driving response without a photomyogenic or photoparoxysmal component. At no time during the waking tracing is there evidence for potentially epileptogenic activity in the form of polyspike or spike wave bursts, focal sharp waves or focal spikes. INTERPRETATION: This EEG is essentially normal during wakefulness without evidence for focal or generalized encephalopathy and without evidence for potentially epileptogenic activity.
--- NOTE | 2016-05-24 16:18 | Progress Note ---
Medicine Progress Note Date & Time of Visit: May 24, 2016 at 15:46. Subjective Pt was seen and examined Sitting in chair very comfortable with no distress with family by her side Pt said that she feels good she just walked with PT with no problems she said that her breathing is stable Pt denies any chest pain, palpitation, dizziness Objective Last 8 Hrs Date Time Temp Pulse Resp B/P Pulse Ox O2 Delivery O2 Flow Rate FiO2 05/24/16 14:43 36.6 65 18 149/79 93 05/24/16 12:17 Room Air 05/24/16 11:42 36.7 70 20 143/81 95 05/24/16 08:30 Room Air Physical Exam: General- No acute distress, very pleasant Head- atraumatic Eyes- PERRL, EOMI ENT- oropharynx clear Neck- supple, no JVD Lungs- No wheezing, no crackles Heart- regular rhythm; no murmur Abdomen- normal bowel sounds, soft Extremities-no calf tenderness Neuro- alert, oriented x 3; PERRL, EOMI; no facial palsy; no dysarthria, no neuro focal deficits Skin- warm & dry Laboratory Results: Last 24 Hours Test 05/23/16 16:00 05/23/16 16:50 05/23/16 21:54 05/24/16 05:55 Activated Partial Thromboplast Time 26.2 SECONDS Partial Thromboplastin Ratio 1.0 White Blood Count 9.54 K/uL 7.44 K/uL Red Blood Count 4.77 M/uL 4.75 M/uL Hemoglobin 13.9 g/dL 14.0 g/dL Hematocrit 40.5 % 40.5 % Mean Corpuscular Volume 84.9 fL 85.3 fL Mean Corpuscular Hemoglobin 29.1 pg 29.5 pg Mean Corpuscular Hemoglobin Concent 34.3 g/dl 34.6 g/dl Platelet Count 283 K/uL 258 K/uL Mean Platelet Volume 10.0 fL 10.0 fL Neutrophils (%) (Auto) 53.7 % 49.8 % Lymphocytes (%) (Auto) 34.9 % 34.7 % Monocytes (%) (Auto) 8.7 % 11.3 % Eosinophils (%) (Auto) 2.2 % 3.4 % Basophils (%) (Auto) 0.3 % 0.5 % Neutrophils # (Auto) 5.12 K/uL 3.71 K/uL Lymphocytes # (Auto) 3.33 K/uL 2.58 K/uL Monocytes # (Auto) 0.83 K/uL 0.84 K/uL Eosinophils # (Auto) 0.21 K/uL 0.25 K/uL Basophils # (Auto) 0.03 K/uL 0.04 K/uL RDW Standard Deviation 41.0 fL 41.1 fL RDW Coefficient of Variation 13.3 % 13.2 % Immature Granulocyte % (Auto) 0.2 % 0.3 % Immature Granulocyte # (Auto) 0.02 K/uL 0.02 K/uL Sodium Level 137 mmol/L Potassium Level 4.0 mmol/L Chloride Level 103 mmol/L Carbon Dioxide Level 24 mmol/L Anion Gap 10.0 mmol/L Blood Urea Nitrogen 10 mg/dl Creatinine 1.00 mg/dl Est Creatinine Clear Calc Drug Dose 41.2 ml/min Estimated GFR () 59.1 Estimated GFR (Non- 51.0 BUN/Creatinine Ratio 10.0 Random Glucose 190 mg/dl Calcium Level 8.5 mg/dl Magnesium Level 2.0 mg/dl Total Bilirubin 0.3 mg/dl Aspartate Amino Transf (AST/SGOT) 14 U/L Alanine Aminotransferase (ALT/SGPT) 19 U/L Alkaline Phosphatase 113 U/L Troponin I < 0.015 ng/ml Total Protein 6.8 gm/dl Albumin 3.6 gm/dl Globulin 3.2 gm/dl Albumin/Globulin Ratio 1.1 Thyroid Stimulating Hormone (TSH) 1.870 uIu/ml Chemistry Specimen Hemolysis Bedside Glucose 102 mg/dl Prothrombin Time 11.1 SECONDS Prothromb Time International Ratio 1.0 Test 05/24/16 07:20 05/24/16 11:29 Bedside Glucose 119 mg/dl 143 mg/dl Assessment & Plan Recurrent syncope episodes Unknown etiology Possible related to vasovagal vs orthostatic vs pacemaker malfunction CT head on admission was negative Repeat CT head today was negative EEG showed no evidence of seizure activity Neuro exam was negative for focal neuro deficits Pacemaker interrogation done Tele monitor reviewed Asymptomatic Family request cardiology consult If symptoms continue, consider Holter monitor, not sure if that will help since pt also already had a pacemaker Recent Echo on 05/21 Showed: Interpretation Summary The examination is adequate to evaluate the referral indication. The left ventricular cavity size is normal. The LV wall thickness is moderately increased (concentric). The left ventricular wall motion is normal. The qualitative LV ejection fraction is 5559%(normal). The left ventricular diastolic function is mildly abnormal (grade I). The aortic valve has three leaflets. The aortic valve is mildly calcified. Very mild aortic valve stenosis is present. The aortic root is mildly enlarged. Hx Pacemaker Pacemaker interrogation done Stable Hypertension Continue current med stable DMII Hba1c 6.2 on 05/11 well controlled continue current management Headache CT head negative stable DVT px on lovenox subq Code Status DNR Consultants: Cardio Current Inpatient Medications: Current Inpatient Medications Medications (Trade) Dose Ordered Sig/Sarah Route Start Time Stop Time Status Last Admin Dose Admin Miscellaneous (Iv Fluids Completed) 1 ea PRN PRN N/A 05/23/16 20:45 05/23/17 20:44 Enoxaparin Sodium (Lovenox Inj) 40 mg Q24H SC 05/24/16 09:00 06/23/16 08:59 05/24/16 10:03 40 MG Acetaminophen (Tylenol Tab) 650 mg Q4H PRN PO 05/23/16 21:15 06/22/16 21:14 Nitroglycerin (Nitrostat Tab) 0.4 mg UD PRN SL 05/23/16 21:15 06/22/16 21:14 Insulin Aspart (novoLOG ASPART) SLIDING SCALE If C... ACHS SC 05/23/16 22:00 06/22/16 21:59 Glucose (Glucose 40% Gel) 15-30 GRAMS 15 GRAMS... UD PRN PO 05/23/16 21:15 06/22/16 21:14 Glucose (Glucose Chew Tab) 4-8 Tablets 4 Tabl... UD PRN PO 05/23/16 21:15 06/22/16 21:14 Dextrose (Dextrose 50% 50ML Syringe) 25-50ML OF 50% DW IV FOR... UD PRN IV 05/23/16 21:15 06/22/16 21:14 Glucagon (Glucagon Inj) 1 mg UD PRN SQ 05/23/16 21:15 06/22/16 21:14 Ondansetron HCl (Zofran Inj) 4 mg Q6H PRN IV 05/23/16 21:15 06/22/16 21:14 Hydromorphone HCl (Dilaudid Inj) 0.5 mg Q3H PRN IV 05/23/16 21:15 06/06/16 21:14 Acetaminophen/ Hydrocodone Bitart ([place] 5/325 Tab) 1 tab Q6H PRN PO 05/23/16 21:15 06/06/16 21:14 Aspirin (Ecotrin Tab) 81 mg QPM PO 05/24/16 21:00 06/23/16 20:59 05/23/16 22:57 81 MG Atorvastatin Calcium (Lipitor Tab) 40 mg QPM PO 05/24/16 21:00 06/23/16 20:59 05/23/16 22:57 40 MG Docusate Sodium (coLACE CAP) 200 mg DAILY PRN PO 05/23/16 21:15 06/22/16 21:14 Metoprolol Succinate (Toprol Xl Tab) 12.5 mg QPM PO 05/24/16 21:00 06/23/16 20:59 05/23/16 22:58 12.5 MG Multivitamins/ Minerals (Multivitamin W/ Minerals Tab) 2 tab QPM PO 05/24/16 21:00 06/23/16 20:59 05/23/16 22:58 2 TAB Polyethylene (Miralax Powder Packet) 17 gm DAILY PRN PO 05/23/16 21:15 06/22/16 21:14 Miscellaneous Information (Order Awaiting Action) 1 ea QS N/A 05/24/16 08:00 06/23/16 07:59 Pantoprazole Sodium (Protonix Tab) 40 mg QPM PO 05/24/16 21:00 06/23/16 20:59 05/23/16 22:58 40 MG Ioversol (Optiray 320) 100 ml UD PRN IV 05/24/16 09:15 05/28/16 09:14
[2016-05-24] MEDS: ASPIRIN 81 MG ECTAB PO SCH (21:01)
[2016-05-24] MEDS: PANTOprazole SOD 40 MG TAB PO SCH (21:01)
[2016-05-24] MEDS: ATORVASTATIN 40 MG TAB PO SCH (21:01)
[2016-05-24] MEDS: CEROVITE ADV FORMULA TAB PO SCH (21:01)
[2016-05-24] MEDS: METOPROLOL SUCC 25MG EXT REL TAB PO SCH (21:02)
[2016-05-25 04:00] VITALS: BP 145/67; PULSE 63; TEMP 36.3; O2SAT 95
[2016-05-25 07:32] VITALS: BP 141/66; PULSE 64; TEMP 36.6; O2SAT 96
[2016-05-25] MEDS: ENOXAPARIN 40 MG/0.4 ML SYR SC SCH (09:07)
[2016-05-25] MEDS: INSULIN ASPART 100 UNITS/ML 3 ML PEN SC SCH ×2 (09:08→12:07)
--- NOTE | 2016-05-25 11:44 | CARDIOLOGY CONSULTATION ---
DATE OF CONSULTATION: 05/25/2016 REFERRING PHYSICIAN: Heather Boss MD PRIMARY CARE PHYSICIAN: Dr. Esteban Deras. REASON FOR CONSULTATION: Possible syncope. HISTORY OF PRESENT ILLNESS: Ms. Daley is an 86-year-old female who presented to the Emergency Department with 2 falls over the past 2 weeks. The initial fall occurred while standing on a step stool in front of her refrigerator. She had been attempting to grass something from an upper shelf when she fell forward. She struck her head and remembers the impact. She was then on the floor and unable to get up. She is unsure whether she lost consciousness completely. She states she was overcome by a feeling of weakness and her legs gave out at that time. She was seen by her primary care physician, who ordered 2D echo, which demonstrated borderline mild aortic stenosis, otherwise preserved LV systolic function. She suffered a second episode on 05/21/2016. At that time, she was in the shower. She was rinsing her hair and then fell backwards, striking her head. She used her alert bracelet to summon EMS. She was brought to the Emergency Department. Initially, her telemetry is unremarkable. She is AV sequential paced during this hospitalization. There are no dysrhythmias. Cardiac enzymes are undetectable. Notes one episode of mild lightheadedness yesterday without associated dysrhythmia or change in blood pressure. Orthostatic blood pressures have been assessed and within normal limits as well. Lasix recently discontinued after 1 dose. No other recent medication changes. Denies fever, chills, dysuria, or sick contacts. Currently, resting comfortably, sitting in chair at bedside. Denies any recent change in functional capacity. She can reproduce symptoms with bending forward. The patient admits to inconsistent diet. She is a diabetic with antihyperglycemic medications as noted below. Frequent falls prior to her pacemaker implantation with head trauma on multiple occasions. She offers no other complaints at this time. REVIEW OF SYSTEMS: The pertinent positive noted above, a comprehensive 10-system review is otherwise negative. PAST MEDICAL HISTORY: 1. Sinus node dysfunction, status post pacemaker implantation. 2. Type 2 diabetes. 3. GERD. 4. Irritable bowel syndrome. 5. Postconcussion syndrome. 6. Colon polyp. 7. Hypertension. PAST SURGICAL HISTORY: 1. Pacemaker implantation. 2. Bilateral knee replacement. 3. Bronchoscopy. 4. Colonoscopy. 5. Cystoscopy. 6. Partial hysterectomy. 7. Spinal surgery with lumbar fusion. SOCIAL HISTORY: Former tobacco use, quitting in 1959. She is and lives alone. FAMILY HISTORY: Negative for premature CAD or sudden cardiac ; however, noncontributory given the patient's advanced age. ALLERGIES: PERCOCET, AUGMENTIN, MORPHINE, AND TOBRAMYCIN. CURRENT OUTPATIENT MEDICATIONS: 1. Sublingual nitroglycerin as needed. 2. Toprol-XL 12.5 mg daily. 3. VESIcare 10 mg daily. 4. Atorvastatin 40 mg daily. 5. Glimepiride 1 mg daily. 6. Esomeprazole 40 mg daily. 7. Zantac 150 mg 2 times daily. 8. Zyrtec daily. 9. Aspirin [address] of the head demonstrates age-related atrophy with no acute process. Cervical spine CT: No fracture or subluxation. Chest x-ray on admission: No acute cardiopulmonary findings. LABORATORY DATA: Cardiac enzymes negative x1 set. White blood cell count 7.44, hemoglobin is 14, and platelet count is 258. INR is 1.0. EKG on admission is sinus rhythm with intermittent demand atrial pacing. Telemetry demonstrates atrial pacing, no dysrhythmias. PHYSICAL EXAMINATION: VITAL SIGNS: Temperature is 36.6 degrees centigrade, pulse 64 beats per minute and regular, respiratory rate 20 breaths per minute, blood pressure 141/66 and SaO2 is 96% on room air. GENERAL: NAD, hard of hearing, awake and alert. HEENT: Her mucous membranes are moist. No scleral icterus. Conjunctivae pink. NECK: Supple. There is no JVD, no HJR, and no carotid bruit. HEART: Regular with a normal S1 and S2. There is a 1/6 systolic ejection murmur heard best at the right second intercostal space without radiation. ABDOMEN: Soft and nontender. There is no rebound or guarding. Normal bowel sounds. EXTREMITIES: Warm and dry with trace pedal edema. NEUROLOGIC: Demonstrates no focal motor deficit. Cranial nerves grossly intact. FINAL IMPRESSION: 1. An 86-year-old female admission with falls and possible recurrent syncopal episode. It appears that the component of the patient falls related to positional dizziness and possible vertigo. Cannot exclude vasovagal syncope, although there are no orthostatic blood pressure changes on examination during hospitalization. She is currently asymptomatic. Her pacemaker interrogation is within normal limits without evidence of dysrhythmia on telemetry. Recent resting 2D transthoracic echo demonstrates normal LV systolic function with mild aortic stenosis. 2. History of multiple falls with head trauma, concussion, and possible post-concussion syndrome. 3. Sick sinus syndrome, status post pacemaker implantation. 4. Hypertension -- controlled. 5. Diabetes type 2, which is well controlled on sulfonylurea. The patient's daughter reports inconsistent diet and possible poor p.o. intake despite taking her medications. PLAN AND RECOMMENDATIONS: I had a long discussion with the patient as well as her daughter via phone. I spoke to her daughter for more than 20 minutes today. Initial cardiac evaluation demonstrates no evidence of dysrhythmia or structural heart disease that would place her at high risk for dysrhythmia. Her pacemaker interrogation also reveals normal function without evidence of sustained dysrhythmias. Consider neurology consultation and/or referral to [facility] in the future. I will discontinue her low dose beta-galo at this time. We will continue to follow and monitor blood pressure as an outpatient. Consider discontinuation of sulfonylurea as intermittent hypoglycemia is surely in the differential diagnosis of the patient recurrent symptoms. Consider alternative antihyperglycemic medications per internal medicine or primary care physician as an outpatient. The patient will return to my office for routine pacemaker check in approximately 2 months. I will see her back for routine followup in 2-4 weeks as an outpatient. Conservative measures discussed with the patient and her daughter including gradual position change and avoiding injury with prodromal symptoms including sitting or lying supine as needed. The patient and daughter voiced understanding. Thank you for allowing me to take part in the care of your patient.
[2016-05-25 12:32] VITALS: BP 119/74; PULSE 69; TEMP 36.3; O2SAT 97
--- NOTE | 2016-05-25 13:39 | Progress Note ---
Medicine Progress Note Date & Time of Visit: May 25, 2016 at 13:21. Subjective Pt was seen and examined Sitting in chair comfortable with no distress Discussed case with daughter that was in the room pt said that she feels fine she denies any chest pain, palpitation, dizziness Objective Last 8 Hrs Date Time Temp Pulse Resp B/P Pulse Ox O2 Delivery O2 Flow Rate FiO2 05/25/16 12:32 36.3 69 24 119/74 97 2.0 05/25/16 12:00 Room Air 05/25/16 08:00 Room Air 05/25/16 07:32 36.6 64 24 141/66 96 Physical Exam: General- No acute distress, very pleasant Head- atraumatic Eyes- PERRL, EOMI ENT- oropharynx clear Neck- supple, no JVD Lungs- No wheezing, no crackles Heart- regular rhythm; no murmur Abdomen- normal bowel sounds, soft Extremities-no calf tenderness Neuro- alert, oriented x 3; PERRL, EOMI; no facial palsy; no dysarthria, no neuro focal deficits Skin- warm & dry Laboratory Results: Last 24 Hours Test 05/24/16 16:33 05/24/16 20:31 05/25/16 08:04 05/25/16 11:49 Bedside Glucose 140 mg/dl 139 mg/dl 146 mg/dl 153 mg/dl Assessment & Plan Recurrent syncope episodes Unknown etiology Possible related to vasovagal vs orthostatic vs pacemaker malfunction vs medication CT head on admission was negative Repeat CT head today was negative EEG showed no evidence of seizure activity Neuro exam was negative for focal neuro deficits Pacemaker interrogation done that showed pacemaker is working fine Tele monitor reviewed no arrhythmia episode Asymptomatic Family request cardiology consult 05/25 No arrhythmia on tele monitor asymptomatic Orthostatic BP Pacemaker is working fine Cardiology spoke to daughter Case discussed with ángela Chaudhry from cardiac standpoint to discharge Metoprolol d/c follow up with cardiology as an outpatient in 2 to 4 weeks Pacemaker checks in 2 months. Continue PT/OT Recent Echo on 05/21 Showed: Interpretation Summary The examination is adequate to evaluate the referral indication. The left ventricular cavity size is normal. The LV wall thickness is moderately increased (concentric). The left ventricular wall motion is normal. The qualitative LV ejection fraction is 5559%(normal). The left ventricular diastolic function is mildly abnormal (grade I). The aortic valve has three leaflets. The aortic valve is mildly calcified. Very mild aortic valve stenosis is present. The aortic root is mildly enlarged. Hx Pacemaker Pacemaker interrogation done function normally Stable Hypertension metoprolol discontinue by Cardiology Continue monitor BP stable DMII Hba1c 6.2 on 05/11 well controlled Will d/c glimepiride for now due to the risk of hypoglycemia If BS starts to elevate, we can resume it continue monitor BS Headache CT head negative stable DVT px on lovenox subq during the hospital course Code Status DNR Disposition Follow up appt with Dr. Deras on 06/01 @ 10:30 am Follow up with Cardiology dr. Rangel in 2 to 4 weeks Consultants: Cardio PT/OT Current Inpatient Medications: Current Inpatient Medications Medications (Trade) Dose Ordered Sig/Sarah Route Start Time Stop Time Status Last Admin Dose Admin Miscellaneous (Iv Fluids Completed) 1 ea PRN PRN N/A 05/23/16 20:45 05/23/17 20:44 Enoxaparin Sodium (Lovenox Inj) 40 mg Q24H SC 05/24/16 09:00 06/23/16 08:59 05/25/16 09:07 40 MG Acetaminophen (Tylenol Tab) 650 mg Q4H PRN PO 05/23/16 21:15 06/22/16 21:14 Nitroglycerin (Nitrostat Tab) 0.4 mg UD PRN SL 05/23/16 21:15 06/22/16 21:14 Insulin Aspart (novoLOG ASPART) SLIDING SCALE If C... ACHS SC 05/23/16 22:00 06/22/16 21:59 Glucose (Glucose 40% Gel) 15-30 GRAMS 15 GRAMS... UD PRN PO 05/23/16 21:15 06/22/16 21:14 Glucose (Glucose Chew Tab) 4-8 Tablets 4 Tabl... UD PRN PO 05/23/16 21:15 06/22/16 21:14 Dextrose (Dextrose 50% 50ML Syringe) 25-50ML OF 50% DW IV FOR... UD PRN IV 05/23/16 21:15 06/22/16 21:14 Glucagon (Glucagon Inj) 1 mg UD PRN SQ 05/23/16 21:15 06/22/16 21:14 Ondansetron HCl (Zofran Inj) 4 mg Q6H PRN IV 05/23/16 21:15 06/22/16 21:14 Hydromorphone HCl (Dilaudid Inj) 0.5 mg Q3H PRN IV 05/23/16 21:15 06/06/16 21:14 Acetaminophen/ Hydrocodone Bitart ([place] 5/325 Tab) 1 tab Q6H PRN PO 05/23/16 21:15 06/06/16 21:14 Aspirin (Ecotrin Tab) 81 mg QPM PO 05/24/16 21:00 06/23/16 20:59 05/24/16 21:01 81 MG Atorvastatin Calcium (Lipitor Tab) 40 mg QPM PO 05/24/16 21:00 06/23/16 20:59 05/24/16 21:01 40 MG Docusate Sodium (coLACE CAP) 200 mg DAILY PRN PO 05/23/16 21:15 06/22/16 21:14 Multivitamins/ Minerals (Multivitamin W/ Minerals Tab) 2 tab QPM PO 05/24/16 21:00 06/23/16 20:59 05/24/16 21:01 2 TAB Polyethylene (Miralax Powder Packet) 17 gm DAILY PRN PO 05/23/16 21:15 06/22/16 21:14 05/24/16 18:51 17 GM Miscellaneous Information (Order Awaiting Action) 1 ea QS N/A 05/24/16 08:00 06/23/16 07:59 Pantoprazole Sodium (Protonix Tab) 40 mg QPM PO 05/24/16 21:00 06/23/16 20:59 05/24/16 21:01 40 MG Ioversol (Optiray 320) 100 ml UD PRN IV 05/24/16 09:15 05/28/16 09:14
--- NOTE | 2016-05-25 13:55 | Discharge Instructions ---
Discharge Instructions Admission Reason for Admission: Syncope Discharge Discharge Diagnosis / Problem: Recurrent syncopal episodes, DM Type 2, Hx pacemaker, HTN Discharge Goals Goal(s): Decrease discomfort, Improve function, Improve disease control Activity Recommendations Activity Limitations: resume your previous activity (as tolerated) . Instructions / Follow-Up Instructions / Follow-Up Follow up with your primary care provider Dr. Deras @ 06/01 @ 10:30 AM Follow up with cardiology in 2-4 weeks Routine pacemaker check in 2 months Monitor blood pressure since metoprolol has been discontinued Monitor Blood sugar since glimepiride has been discontinued Fall precaution Current Hospital Diet Patient's current hospital diet: Diabetes Type 2 Diet Discharge Diet Recommended Diet: AHA Diet (Heart Healthy), Diabetes Type 2 Diet Pending Studies Studies pending at discharge: no Medical Emergencies . Who to Call and When: Medical Emergencies: If at any time you feel your situation is an emergency, please call 911 immediately. . Non-Emergent Contact Non-Emergency issues call your: Primary Care Provider Call Non-Emergent contact if: you have any medication questions . . "Provider Documentation" section prepared by Heather Boss. VTE Core Measure Inpt VTE Proph given/why not?: Enoxaparin (Lovenox)SQ
[2016-05-25 14:26] VITALS: BP 119/74; PULSE 69; TEMP 36.3; O2SAT 97
--- NOTE | 2016-05-29 07:53 | Discharge Summary ---
Discharge Summary Date of Service May 29, 2016. Discharge Summary Admission Date: May 23, 2016 at 20:31 Discharge Date: May 25, 2016 Discharge Disposition: Home Principal Diagnosis: Syncope Secondary Diagnoses/Problems: Recurrent syncopal episodes DM Type 2 Hx pacemaker HTN Procedures: Pacemaker Interrogation [~ rep ct add3]] CT brain combination HEAD COMBO CLINICAL HISTORY: Mental status change TECHNIQUE: Pre and post contrast transaxial acquisition COMPARISON STUDY: 05/23/2016 FINDINGS: Mild age-related atrophy. Ventricular system is midline. No evidence for acute intracranial hemorrhage. Postcontrast images are negative for an enhancing lesion. IMPRESSION: Age-related atrophy. No acute process. No change from the prior study. CT OF THE CERVICAL SPINE WITHOUT CONTRAST CLINICAL HISTORY: Fall. COMPARISON STUDY: Cervical spine CT May 12, 2016. TECHNIQUE: Helical axial images of the cervical spine were obtained without IV contrast. Sagittal and coronal reconstructions were viewed. FINDINGS: No acute fracture is identified. Craniocervical junction is intact. A lucent lesion within the left aspect of the C3 vertebral bodies unchanged since prior exams. This is benign. There is moderate multilevel degenerative disc disease and severe multilevel facet arthrosis. There is no prevertebral edema. No pneumothorax is shown within visualized portions of the lung apices. IMPRESSION: No acute cervical spine fracture or subluxation. Electronically signed by: German Tran M.D. 05/23/2016 6:28 PM Consultations: Cardio PT/OT Medication Reconciliation Continued Medications: Aspirin Enteric Coated (Ecotrin Or Generic) 81 Mg Tab 81 MG PO QPM, TAB Atorvastatin (Lipitor) 40 Mg Tab 40 MG PO QPM, TAB Cyclosporine (Ophth) (Restasis) 0.05 % Emu 1 DROP OP HS, BTL MAY TAKE UPTO BID BUT PT USUALLY TAKES IT AT BEDTIME Docusate Sodium (Docusate Sodium) 100 Mg Cap 200 MG PO DAILY PRN for Constipation Esomeprazole Magnesium (Esomeprazole Magnesium) 40 Mg Cap 40 MG PO QPM Nitroglycerin (Nitrostat) 0.4 Mg Tab 0.4 MG UT UD PRN for Chest Pain, 0 Refills Ocuvite Preservision (Ocuvite Preservision) 1 Tab Tab 2 TAB PO QPM, TAB Polyethylene (Miralax) 17 Gm Pow 17 GM PO DAILY PRN for Constipation Solifenacin (Vesicare) 10 Mg Tab 10 MG PO QPM, TAB [Avastin] () 1 DOSE OPR [id number] Discontinued Medications: Glimepiride (Glimepiride) 1 Mg Tab 1 MG PO QPM for 90 Days, TAB 3 Refills Metoprolol Succinate (Toprol Xl) 25 Mg Tabcr 12.5 MG PO QPM, #30 TAB Admission Information HPI (per Admitting provider): CHIEF COMPLAINT: Recurrent syncope. HISTORY OF PRESENT ILLNESS: Medical history is significant for hypertension, SA node dysfunction status post pacemaker placement. DM2 on oral meds, past tobacco abuse, arthritis, CHRIS on CPAP. Three weeks ago, the patient had an unwitnessed syncopal event while in her kitchen, Patient was found sitting on the floor at home after her personal Med Alert went off. No chest pain. Usual shortness of breath. Seen at the ER. CAT scan of the head showed left parietal scalp hematoma. Patient was subsequently sent home. Patient had a followup with PCP. Furosemide was stopped. Outpx 2D echo last month showed increased concentric LVH, EF of 55-59%, abnormal LV diastolic dysfunction, mild calcific aortic valve stenosis and mild aortic root enlargement. Home pacer checks from a few weeks back were OK as per daughter's communication w/ [employer]. Patient also admits to episodic headaches from the vertex going down to the left side of the head, intermittent symptoms. No nausea, no vomiting for months now. some forgetfulness attributed to multiple concussions in the past as per px/ family Two days ago, px had recurrent syncopal event in the shower. No incontinence, no tongue biting. She may have been out for two hours. Physical Exam (per Admitting): PHYSICAL EXAMINATION: VITAL SIGNS: Blood pressure is 129/65, pulse rate 66, RR 18, temp 37.2, sats 98 on room air. GENERAL: Noted to be obese, slightly anxious, in no respiratory distress, looks younger for her stated age. HEENT: [place] palpebral conjunctivae. Dry mucosa. NECK: Short neck. LUNGS: Decreased breath sounds. HEART: Regular rate and rhythm. ABDOMEN: Soft. EXTREMITIES: No edema. no tenderness NEUROLOGIC: No gross focality. Hospital Course Recurrent syncope episodes Unknown etiology Possible related to vasovagal vs orthostatic vs pacemaker malfunction vs medication CT head on admission was negative Repeat CT head today was negative EEG showed no evidence of seizure activity Neuro exam was negative for focal neuro deficits Pacemaker interrogation done that showed pacemaker is working fine Tele monitor reviewed no arrhythmia episode Asymptomatic Family request cardiology consult 05/25 No arrhythmia on tele monitor asymptomatic Orthostatic BP Pacemaker is working carlos a Cardiology spoke to daughter Case discussed with ángela Chaudhry from cardiac standpoint to discharge Metoprolol d/c follow up with cardiology as an outpatient in 2 to 4 weeks Pacemaker checks in 2 months. Continue PT/OT Recent Echo on 05/21 Showed: Interpretation Summary The examination is adequate to evaluate the referral indication. The left ventricular cavity size is normal. The LV wall thickness is moderately increased (concentric). The left ventricular wall motion is normal. The qualitative LV ejection fraction is 5559%(normal). The left ventricular diastolic function is mildly abnormal (grade I). The aortic valve has three leaflets. The aortic valve is mildly calcified. Very mild aortic valve stenosis is present. The aortic root is mildly enlarged. Hx Pacemaker Pacemaker interrogation done function normally Stable Hypertension metoprolol discontinue by Cardiology Continue monitor BP stable DMII Hba1c 6.2 on 05/11 well controlled Will d/c glimepiride for now due to the risk of hypoglycemia If BS starts to elevate, we can resume it continue monitor BS Headache CT head negative stable DVT px on lovenox subq during the hospital course Code Status DNR Disposition Follow up appt with Dr. Deras on 06/01 @ 10:30 am Follow up with Cardiology dr. Rangel in 2 to 4 weeks Total time spent on discharge = 35 minutes This includes examination of the patient, discharge planning, medication reconciliation, and communication with other providers. Discharge Instructions Patient Name: Diamond Daley Unit Number: [id number] Date of : 1930 Patient Status: Discharged Inpatient (obs) Attending Doctor: Heather Boss M.D. DI: Medical v4 Discharge Instructions Admission Reason for Admission: Syncope Discharge Discharge Diagnosis / Problem: Recurrent syncopal episodes, DM Type 2, Hx pacemaker, HTN Discharge Goals Goal(s): Decrease discomfort, Improve function, Improve disease control Activity Recommendations Activity Limitations: resume your previous activity (as tolerated) . Instructions / Follow-Up Instructions / Follow-Up Follow up with your primary care provider Dr. Deras @ 06/01 @ 10:30 AM Follow up with cardiology in 2-4 weeks Routine pacemaker check in 2 months Monitor blood pressure since metoprolol has been discontinued Monitor Blood sugar since glimepiride has been discontinued Fall precaution Current Hospital Diet Patient's current hospital diet: Diabetes Type 2 Diet Discharge Diet Recommended Diet: AHA Diet (Heart Healthy), Diabetes Type 2 Diet Pending Studies Studies pending at discharge: no Medical Emergencies . Who to Call and When: Medical Emergencies: If at any time you feel your situation is an emergency, please call 911 immediately. . Non-Emergent Contact Non-Emergency issues call your: Primary Care Provider Call Non-Emergent contact if: you have any medication questions . . "Provider Documentation" section prepared by Heather Boss. VTE Core Measure Inpt VTE Proph given/why not?: Enoxaparin (Lovenox)SQ Additional Copies To Esteban Deras D.O.
== END 2016-05-25 15:28 | disposition home or self-care (01) ==
LOC: ENRESERVTM → ENRESERVDT → C.EDB 16:11 → C.MED 20:31
PROVIDERS: ADMIT Internal Medicine; ATTEND Internal Medicine
DX: R55 Syncope and collapse (principal); S09.90XA Unspecified injury of head, initial encounter; S80.02XA Contusion of left knee, initial encounter; I25.2 Old myocardial infarction; I11.9 Hypertensive heart disease without heart failure; E11.9 Type 2 diabetes mellitus without complications; G47.33 Obstructive sleep apnea (adult) (pediatric); K21.9 Gastro-esophageal reflux disease without esophagitis; E66.9 Obesity, unspecified; Z51.81 Encounter for therapeutic drug level monitoring; Z79.899 Other long term (current) drug therapy; Z79.84 Long term (current) use of oral hypoglycemic drugs; Z79.82 Long term (current) use of aspirin; Z91.81 History of falling; Z95.0 Presence of cardiac pacemaker; Z66 Do not resuscitate; Z96.653 Presence of artificial knee joint, bilateral; Z68.36 Body mass index [BMI] 36.0-36.9, adult; Z87.891 Personal history of nicotine dependence; Z82.49 Family history of ischemic heart disease and other diseases of the circulatory system; W18.2XXA Fall in (into) shower or empty bathtub, initial encounter; Y93.E1 Activity, personal bathing and showering; Y92.002 Bathroom of unspecified non-institutional (private) residence as the place of occurrence of the external cause; Y99.8 Other external cause status